=== PATIENT | female | born 1950 | race Caucasian/White ===

== ENCOUNTER 2016-11-02 11:16 | Outpatient (CLI) | payer MEDICARE, OTHER | END 2016-11-02 23:59 | DX: Z12.11 Encounter for screening for malignant neoplasm of colon (principal); R94.6 Abnormal results of thyroid function studies; R73.9 Hyperglycemia, unspecified; I10 Essential (primary) hypertension; E78.5 Hyperlipidemia, unspecified ==

== ENCOUNTER 2017-08-30 14:17 | Day surgery (SDC) | payer MEDICARE, OTHER ==
[2017-08-30] MEDS ORDERED: LACTATED RINGERS 1,000 ML IV ONE (14:22)
[2017-08-30] MEDS ORDERED: PROPOFOL 200 MG/20 ML VIAL IVP ONE (15:50)
[2017-08-30] MEDS ORDERED: KETAMINE 500 MG/10 ML VIAL IVP ONE (15:50)
[2017-08-30] MEDS ORDERED: MIDAZOLAM 2 MG/2 ML VIAL IVP ONE (15:50)
[2017-08-30 16:29] VITALS: BP 104/52
--- NOTE | 2017-08-31 14:32 | PROCEDURE REPORT ---
DATE OF SERVICE: 08/30/2017 Physician: Nuzhat Camarillo MD PROCEDURES: Esophagogastroduodenoscopy and colonoscopy. ENDOSCOPIST: Nuzhat Camarillo MD PRIMARY CARE: Steve Mason MD ONCOLOGIST: Dr. John. INDICATION 1. Positive Cologuard. 2. History of GE reflux with difficulty getting off Prilosec. PREMEDICATIONS: MAC, per Anesthesia. DESCRIPTION OF PROCEDURES After informed consent was obtained, the patient was placed in the left lateral decubitus position. The video upper scope was placed into the oropharynx with the patient's help and swallowed into the esophagus. The esophagus, stomach, and duodenum were carefully examined. On withdrawal, retroflex view of the GE junction was performed. The scope was removed. The patient tolerated the procedure well. The patient was then moved, and the colonoscope was substituted. This was easily passed to the cecum. Preparation was excellent. On slow withdrawal, mucosa was carefully examined. The scope was removed. The patient tolerated the procedure well. BLOOD LOSS: None. COMPLICATIONS: None. FINDINGS ESOPHAGOGASTRODUODENOSCOPY 1. Normal esophagus. 2. Normal stomach. 3. Normal duodenum. COLONOSCOPY 1. A 9 mm sessile polyp in the right colon, hot-snared and removed completely. 2. A very extensive left-sided diverticulosis with large diverticula. 3. Otherwise negative colonoscopy to cecum. Patient will be relieved to find out she only has a medium-sized colon polyp. We will await biopsy pathology return but expect she will need followup colonoscopy in 3-5 years. cc: MD Kit Licea MD TD: 08/30/2017 21:51
== END 2017-08-30 14:18 | disposition home or self-care (01) ==
LOC: SDS 14:17
PROVIDERS: ATTEND Internal Medicine Gastroenterology
PROC: 0DJ08ZZ Inspection of Upper Intestinal Tract, Via Natural or Artificial Opening Endoscopic (ICD-10-PCS; principal; 2017-08-30 15:00)
PROC: 0DBF8ZX Excision of Right Large Intestine, Via Natural or Artificial Opening Endoscopic, Diagnostic (ICD-10-PCS; 2017-08-30 15:00)
DX: D12.2 Benign neoplasm of ascending colon (principal); K57.30 Diverticulosis of large intestine without perforation or abscess without bleeding; K21.9 Gastro-esophageal reflux disease without esophagitis; I10 Essential (primary) hypertension; J45.909 Unspecified asthma, uncomplicated; E78.00 Pure hypercholesterolemia, unspecified; Z85.3 Personal history of malignant neoplasm of breast; Z87.891 Personal history of nicotine dependence
CPT/HCPCS: 43235; 45385; J7120

== ENCOUNTER 2017-10-25 08:00 | Outpatient (CLI) | payer MEDICARE, OTHER | END 2017-10-25 08:01 | disposition home or self-care (01) | LOC: LAB.WCP 08:00 | PROVIDERS: ATTEND Family Medicine | DX: Z79.891 Long term (current) use of opiate analgesic (principal) | CPT/HCPCS: 80307; 81599 ==

== ENCOUNTER 2018-11-15 12:49 | Outpatient (CLI) | payer MEDICARE, OTHER ==
--- NOTE | 2018-11-15 13:54 | Mammography Report ---
Reason: BREAST PAIN,RIGHT Procedure Date: 11/15/2018 Accession Number: [id number] / [id number] Procedure: SONI - Diagnostic Dig Bilat CPT Code: FULL RESULT: EXAM: Diagnostic Dig Bilat DATE: 11/15/2018 1:22 PM CLINICAL HISTORY: Diagnostic mammogram. Personal history of breast cancer status post lumpectomy in 2007. The patient experiences intermittent pain in the region of prior surgery. TECHNIQUE: (B) - Bilateral CC and MLO views were obtained. A right ML view was also obtained. COMPARISON: 10/23/2017 through 12/25/2008. PARENCHYMAL PATTERN: (A) - The breast(s) demonstrate(s) scattered fibroglandular densities. FINDINGS: Postsurgical changes in the right breast are stable with no change in appearance of the breast in the region marked as palpable. A prominent region of fat necrosis is seen in the region marked as palpable, typically benign and possibly responsible for the patient's symptoms. There are no suspicious masses, calcifications, or areas of distortion. IMPRESSION: Benign findings. BI-RADS category 2. RECOMMENDATION: (ANNUAL) - Recommend routine annual screening mammography. BI-RADS CATEGORY: (2) - Benign Findings. STANDARD QUALIFYING STATEMENTS: 1. This examination was not reviewed with the aid of Computer-Aided Detection (CAD). 2. A negative or benign imaging report should not preclude biopsy if clinically suspicious findings are present. 3. Dense breasts may obscure an underlying neoplasm. 4. This examination was reviewed with the aid of 3D breast imaging (tomosynthesis).
== END 2018-11-15 12:50 | disposition home or self-care (01) ==
LOC: DI 12:49
PROVIDERS: ATTEND Family Medicine
DX: N64.4 Mastodynia (principal); Z85.3 Personal history of malignant neoplasm of breast
CPT/HCPCS: 77066

== ENCOUNTER 2019-01-14 08:00 | Outpatient (CLI) | payer MEDICARE, OTHER ==
[2019-01-14 18:42] LABS: BASOPHILS # (AUTO) 0.1 10^3/uL (0.0-0.1); EOSINOPHILS # (AUTO) 0.3 10^3/uL (0.0-0.7); HGB - HEMOGLOBIN 13.2 g/dL (12.0-16.0); LYMPHOCYTES % (AUTO) 18.3 %; MEAN CORPUSCULAR HGB CONC 32.8 g/dL (32.0-36.0); MEAN CORPUSCULAR VOLUME 97.8 fL (81.0-99.0); MEAN PLATELET VOLUME 9.9 fL (7.9-10.8); MONOCYTES # (AUTO) 0.7 10^3/uL (0.0-1.0); MONOCYTES % (AUTO) 13.3 %; NEUTROPHILS # (AUTO) 3.2 10^3/uL (1.5-6.6); PLT - PLATELET COUNT 339 10^3/uL (130-450); RED BLOOD COUNT 4.12 10^6/uL (4.20-5.40); RED CELL DISTRIBUTION WIDTH 12.8 % (12.0-15.0); WHITE BLOOD COUNT 5.2 x10^3/uL (4.8-10.8)
[2019-01-14 19:55] LABS: AST ASPARTATE AMINOTRANSFERASE 35 IU/L (10-42); BILIRUBIN,TOTAL 0.8 mg/dL (0.2-1.0); BUN - BLOOD UREA NITROGEN 13 mg/dL (6-20); CALCIUM 9.1 mg/dL (8.5-10.3); CARBON DIOXIDE - CO2 24 mmol/L (21-32); CHLORIDE 102 mmol/L (101-111); CREATININE 0.8 mg/dL (0.4-1.0); GFR - MDRD 71 (>89); GLUCOSE 108 mg/dL (70-100); SODIUM 137 mmol/L (135-145)
[2019-01-14 19:56] LABS: ALBUMIN 3.9 g/dL (3.2-5.5); ALBUMIN/GLOBULIN RATIO 1.3 (1.0-2.2); ALKALINE PHOSPHATASE 62 IU/L (42-121); ALT ALANINE AMINOTRANSFERASE 39 IU/L (10-60); CHOL/HDL RATIO 4.7 (<4.4); CHOLESTEROL 274 mg/dL; HDL CHOLESTEROL 58 mg/dL; LDL CHOLESTEROL,CALCULATED 163 mg/dL; LDL/HDL RATIO 2.8 (<4.4); TOTAL PROTEIN 6.9 g/dL (6.7-8.2); VLDL CHOLESTEROL 53 mg/dL
[2019-01-14 20:43] LABS: HEMOGLOBIN A1C 0.53 g/dL; HEMOGLOBIN A1C % 5.6 % (4.6-6.2)
== END 2019-01-14 23:59 | disposition home or self-care (01) ==
LOC: LAB.WCP 08:00
PROVIDERS: ATTEND Family Medicine
DX: I10 Essential (primary) hypertension (principal); R73.9 Hyperglycemia, unspecified; R63.5 Abnormal weight gain; J44.9 Chronic obstructive pulmonary disease, unspecified; E78.5 Hyperlipidemia, unspecified
CPT/HCPCS: 36415; 80053; 80061; 83036; 83721; 84443; 85025

== ENCOUNTER 2019-12-02 14:00 | Outpatient (CLI) | payer MEDICARE, OTHER ==
--- NOTE | 2019-12-03 10:10 | Mammography Report ---
BILATERAL DIGITAL SCREENING MAMMOGRAM 3D/2D: 12/02/2019 CLINICAL: Routine screening. Personal history of right breast cancer. Comparison is made to exams dated: 10/20/2015 mammogram, 10/20/2016 mammogram, 10/23/2017 mammogram, an d 09/23/2014 mammogram - [facility]. There are scattered fibroglandular elements in both juliann sts. There are benign vascular calcifications in the right breast. There also are benign post operative f indings in the right breast. No significant masses, calcifications, or other findings are seen in either breast. There has been no significant interval change. IMPRESSION: There is no mammographic evidence of malignancy. A 1 year screening mammogram is recommended. This exam was interpreted at Station ID: [id number]. NOTE: For mammograms, a report in lay terms will be sent to the patient. Approximately 15% of breast malignancies will not be visualized mammographically. In the management of a palpable breast mass, a negative mammogram must not discourage biopsy of a clinically suspicious lesion. Electronically Signed By: Ellen sierra/rosi:12/02/2019 17:08:28 ACR BI-RADS Category 2: Benign Finding(s) 3342F PARENCHYMAL PATTERN: (A) - The breast(s) demonstrate(s) scattered fibroglandular densities. BI-RADS CATEGORY: (2) - 2 RECOMMENDATION: (ANNUAL) - Recommend routine annual screening mammography. [id number] 1 year screening LATERALITY: (B)
== END 2019-12-02 14:01 | disposition home or self-care (01) ==
LOC: DI 14:00
DX: Z12.31 Encounter for screening mammogram for malignant neoplasm of breast (principal); Z85.3 Personal history of malignant neoplasm of breast
CPT/HCPCS: 77063; 77067

== ENCOUNTER 2020-10-26 09:00 | Outpatient (CLI) | payer MEDICARE, OTHER ==
--- NOTE | 2020-10-26 15:36 | XRAY Report ---
PROCEDURE: Thoracic Spine 2 View INDICATIONS: CHRONIC THORACIC BACK PX TECHNIQUE: 3 views of the thoracic spine were acquired. COMPARISON: None. FINDINGS: Bones: No fractures or dislocations. No suspicious bony lesions. 12 pairs of ribs are noted, and a ppear intact where visualized. Multilevel degenerative disc space narrowing is present. Soft tissues: No paravertebral stripe thickening. IMPRESSION: Degenerative disc space narrowing throughout the thoracic spine. Reviewed by: Jannet Rodriguez MD on 10/26/2020 3:35 PM PDT Approved by: Jannet Rodriguez MD on 10/26/2020 3:35 PM PDT Station ID: [id number]
--- NOTE | 2020-10-26 15:37 | XRAY Report ---
PROCEDURE: Cervical Spine 2 View INDICATIONS: DEGENERATIVE DISC DISEASE, CERVICAL SPINE TECHNIQUE: 3 view(s) of the cervical spine were acquired. COMPARISON: None. FINDINGS: Bones: No fractures or dislocations to the C7-T1 level. The lateral masses of C1 appear intact on t he odontoid view. No suspicious bony lesions. There is trace anterolisthesis of C4 on C5. Severe di sc space narrowing is present at C5-6, C6-7, C7-T1, with small nonbridging anterior osteophytes. Mult ilevel uncovertebral hypertrophy is present. Soft tissues: No prevertebral soft tissue swelling. IMPRESSION: Degenerative changes most severe at C5-6 through C7-T1. Reviewed by: Jannet Rodriguez MD on 10/26/2020 3:36 PM PDT Approved by: Jannet Rodriguez MD on 10/26/2020 3:36 PM PDT Station ID: [id number]
== END 2020-10-26 09:01 | disposition home or self-care (01) ==
LOC: DI.N 09:00
PROVIDERS: ATTEND Family Medicine
DX: M50.322 Other cervical disc degeneration at C5-C6 level (principal); M51.34 Other intervertebral disc degeneration, thoracic region; I10 Essential (primary) hypertension; R73.01 Impaired fasting glucose
CPT/HCPCS: 36415; 80053; 80061; 83036; 83721; 84443; 85025

== ENCOUNTER 2020-10-26 09:05 | Outpatient (CLI) | payer MEDICARE, OTHER ==
[2020-10-26 11:48] LABS: BASOPHILS # (AUTO) 0.1 10^3/uL (0.0-0.1); BASOPHILS % (AUTO) 0.9 %; EOSINOPHILS # (AUTO) 0.3 10^3/uL (0.0-0.7); EOSINOPHILS % (AUTO) 4.9 %; HCT - HEMATOCRIT 41.7 % (37.0-47.0); HGB - HEMOGLOBIN 13.7 g/dL (12.0-16.0); LYMPHOCYTES # (AUTO) 1.1 10^3/uL (1.5-3.5); LYMPHOCYTES % (AUTO) 21.3 %; MEAN CORPUSCULAR HEMOGLOBIN 31.5 pg (27.0-31.0); MEAN CORPUSCULAR HGB CONC 32.9 g/dL (32.0-36.0); MEAN CORPUSCULAR VOLUME 95.9 fL (81.0-99.0); MEAN PLATELET VOLUME 10.5 fL (7.9-10.8); MONOCYTES # (AUTO) 0.7 10^3/uL (0.0-1.0); MONOCYTES % (AUTO) 13.6 %; NEUTROPHILS # (AUTO) 3.2 10^3/uL (1.5-6.6); NEUTROPHILS % (AUTO) 59.3 %; PLT - PLATELET COUNT 334 10^3/uL (130-450); RED BLOOD COUNT 4.35 10^6/uL (4.20-5.40); RED CELL DISTRIBUTION WIDTH 12.7 % (12.0-15.0); WHITE BLOOD COUNT 5.4 x10^3/uL (4.8-10.8)
[2020-10-26 12:02] LABS: ALBUMIN/GLOBULIN RATIO 1.4 (1.0-2.2); ALKALINE PHOSPHATASE 70 IU/L (42-121); ALT ALANINE AMINOTRANSFERASE 26 IU/L (10-60); AST ASPARTATE AMINOTRANSFERASE 21 IU/L (10-42); BILIRUBIN,TOTAL 0.6 mg/dL (0.2-1.0); BUN - BLOOD UREA NITROGEN 16 mg/dL (6-20); CALCIUM 9.4 mg/dL (8.5-10.3); CARBON DIOXIDE - CO2 29 mmol/L (21-32); CHLORIDE 104 mmol/L (101-111); CHOL/HDL RATIO 3.2 (<4.4); CHOLESTEROL 177 mg/dL; CREATININE 0.8 mg/dL (0.4-1.0); GFR - MDRD 71 (>89); GLUCOSE 121 mg/dL (70-100); HDL CHOLESTEROL 55 mg/dL; LDL CHOLESTEROL,CALCULATED 89 mg/dL; LDL/HDL RATIO 1.6 (<4.4); POTASSIUM 3.9 mmol/L (3.5-5.0); SODIUM 142 mmol/L (135-145); TOTAL PROTEIN 6.9 g/dL (6.7-8.2); TRIGLYCERIDES 166 mg/dL; VLDL CHOLESTEROL 33 mg/dL
[2020-10-26 12:08] LABS: ESTIMATED AVERAGE GLUCOSE 114 mg/dL (70-100); HEMOGLOBIN A1c% 5.6 % (4.27-6.07)
[2020-10-26 13:04] LABS: THYROID STIMULATING HORMONE 0.66 uIU/mL (0.34-5.60)
== END 2020-10-26 09:06 | disposition home or self-care (01) ==
LOC: LAB.N 09:05
PROVIDERS: ATTEND Family Medicine
DX: I10 Essential (primary) hypertension (principal); R73.01 Impaired fasting glucose
CPT/HCPCS: 36415; 80053; 80061; 83036; 83721; 84443; 85025

== ENCOUNTER 2020-12-07 13:13 | Outpatient (CLI) | payer MEDICARE, OTHER ==
--- NOTE | 2020-12-08 07:57 | Mammography Report ---
BILATERAL DIGITAL SCREENING MAMMOGRAM 3D/2D: 12/07/2020 CLINICAL: Routine screening. Personal history of right breast cancer. Comparison is made to exams dated: 12/02/2019 mammogram - [facility], 10/23/2017 mamm ogram, 10/20/2016 mammogram, and 10/20/2015 mammogram - [facility]. There are scattered fi broglandular elements in both breasts. There are benign post operative findings and fat necrosis in the right breast. No significant masses, calcifications, or other findings are seen in either breast. There has been no significant interval change. IMPRESSION: BENIGN There is no mammographic evidence of malignancy. A 1 year screening mammogram is recommended. This exam was interpreted at Station ID: [id number]. NOTE: For mammograms, a report in lay terms will be sent to the patient. Approximately 15% of breast malignancies will not be visualized mammographically. In the management of a palpable breast mass, a negative mammogram must not discourage biopsy of a clinically suspicious lesion. Electronically Signed By: Melvin Garcia M.D. slc/:12/07/2020 17:00:01 ACR BI-RADS Category 2: Benign Finding(s) 3342F PARENCHYMAL PATTERN: (A) - The breast(s) demonstrate(s) scattered fibroglandular densities. BI-RADS CATEGORY: (2) - 2 RECOMMENDATION: (ANNUAL) - Recommend routine annual screening mammography. [id number] 1 year screening LATERALITY: (B)
== END 2020-12-07 13:14 | disposition home or self-care (01) ==
LOC: DI 13:13
DX: Z12.31 Encounter for screening mammogram for malignant neoplasm of breast (principal); Z85.3 Personal history of malignant neoplasm of breast

== ENCOUNTER 2020-12-07 13:34 | Outpatient (CLI) | payer MEDICARE, OTHER ==
--- NOTE | 2020-12-07 18:07 | CT Report ---
PROCEDURE: Low Dose Lung Cancer Screen INDICATIONS: TOBACCO USE TECHNIQUE: Noncontrast low-dose 5 mm thick sections acquired from the pulmonary apices to the posterior costophr enic angles. 7 mm thick coronal and sagittal MIP reformats were then acquired. For radiation dose r eduction, the following was used: automated exposure control, adjustment of mA and/or kV according t o patient size. COMPARISON: None. FINDINGS: Image quality: Excellent. Lungs and pleura: No nodules or masses. No acute airspace opacity. No pneumothorax or pleural effusi on. Mediastinum: Heart size is normal. No pericardial effusion. No mediastinal adenopathy by size crit eria. Thoracic aorta and central pulmonary arteries are normal in size. Esophagus is normal in claudy marco antonio. No hiatal hernia. Bones and chest wall: No suspicious bony lesions. No vertebral body compression fractures. No axil sindhu or supraclavicular adenopathy by size criteria. The thyroid is normal in size and there are no incidental findings. Abdomen: Visualized upper abdomen solid organs and bowel loops appear normal in the absence of contr ast. IMPRESSION: 1. No evidence of malignancy to the chest. 2. Lung RADS 1. Negative. Continue annual low dose CT lung screening. Reviewed by: Willy Deal on 12/07/2020 6:05 PM PDT Approved by: Willy Deal on 12/07/2020 6:05 PM PDT Station ID: [id number]
== END 2020-12-07 13:35 | disposition home or self-care (01) ==
LOC: DI 13:34
PROVIDERS: ATTEND Family Medicine
DX: Z12.2 Encounter for screening for malignant neoplasm of respiratory organs (principal); Z87.891 Personal history of nicotine dependence

== ENCOUNTER 2022-08-24 10:24 | Outpatient (CLI) | payer MEDICARE ==
[2022-08-24 12:39] LABS: ALBUMIN 3.9 g/dL (3.2-5.5); ALBUMIN/GLOBULIN RATIO 1.2 (1.0-2.2); ALKALINE PHOSPHATASE 74 IU/L (42-121); ALT ALANINE AMINOTRANSFERASE 27 IU/L (10-60); AST ASPARTATE AMINOTRANSFERASE 25 IU/L (10-42); BILIRUBIN,TOTAL 0.7 mg/dL (0.2-1.0); BUN - BLOOD UREA NITROGEN 14 mg/dL (6-20); CALCIUM 9.6 mg/dL (8.5-10.3); CARBON DIOXIDE - CO2 28 mmol/L (21-32); CHLORIDE 101 mmol/L (101-111); CHOLESTEROL 180 mg/dL; GFR - MDRD 54 (>89); GLUCOSE 117 mg/dL (70-100); HDL CHOLESTEROL 63 mg/dL; LDL CHOLESTEROL,CALCULATED 87 mg/dL; POTASSIUM 4.5 mmol/L (3.5-5.0); SODIUM 137 mmol/L (135-145); TOTAL PROTEIN 7.2 g/dL (6.7-8.2); TRIGLYCERIDES 150 mg/dL; VLDL CHOLESTEROL 30 mg/dL
[2022-08-24 12:40] LABS: CHOL/HDL RATIO 2.9 (<4.4); LDL/HDL RATIO 1.4 (<4.4)
[2022-08-24 12:48] LABS: ESTIMATED AVERAGE GLUCOSE 120 mg/dL (70-100); HEMOGLOBIN A1c% 5.8 % (4.27-6.07)
== END 2022-08-24 10:25 | disposition home or self-care (01) ==
LOC: LAB.N 10:24
PROVIDERS: ATTEND Physician Assistant
DX: E78.5 Hyperlipidemia, unspecified (principal); Z51.81 Encounter for therapeutic drug level monitoring; R73.01 Impaired fasting glucose; R73.03 Prediabetes
CPT/HCPCS: 36415; 80053; 80061; 83036; 83721

== ENCOUNTER 2022-09-08 12:35 | Outpatient (CLI) | payer MEDICARE ==
--- NOTE | 2022-09-08 16:29 | CT Report ---
PROCEDURE: Low Dose Lung Cancer Screen INDICATIONS: HIST OF TOBACCO USE TECHNIQUE: Noncontrast low-dose axial images were acquired from the pulmonary apices to the posterior costophren ic angles. Multiplanar MIP reformats were then reconstructed. For radiation dose reduction, the follo wing was used: automated exposure control, adjustment of mA and/or kV according to patient size. COMPARISON: 12/07/2020 FINDINGS: Image quality: Excellent. Lungs and pleura: No suspicious lung nodules, masses, consolidations, or groundglass opacities. No p leural effusions, pneumothorax, or pleural calcifications. Mediastinum: Heart size is normal. Mild to moderate coronary artery calcification. No pericardial e ffusion. No mediastinal adenopathy by size criteria. Thoracic aorta and central pulmonary arteries are normal in size. Esophagus is normal in caliber. No hiatal hernia. Bones and chest wall: No suspicious bony lesions. No vertebral body compression fractures. Partial ly imaged surgical changes in the right breast and partially seen evidence of fat necrosis in the rig ht breast. No axillary or supraclavicular adenopathy by size criteria. The thyroid gland is not well seen given low-dose technique. Abdomen: There is a partially imaged exophytic cystic mass arising from the posterior right kidney m easuring 3.6 cm with intermediate Hounsfield units. Visualized upper abdomen solid organs and bowel l oops appear otherwise normal in the absence of contrast. IMPRESSION: 1. No suspicious lung nodules or masses. 2. Lung RADS 1, negative. Continue annual low-dose chest CT screening. 3. Surgical changes in the right breast. 4. Partially imaged exophytic right renal cystic mass. Consider renal ultrasound for further initial evaluation. Reviewed by: Janet Hooker MD on 09/08/2022 4:28 PM PDT Approved by: Janet Hooker MD on 09/08/2022 4:28 PM PDT Station ID: [id number]
== END 2022-09-08 12:36 | disposition home or self-care (01) ==
LOC: DI 12:35
PROVIDERS: ATTEND Physician Assistant
DX: Z12.2 Encounter for screening for malignant neoplasm of respiratory organs (principal); N28.1 Cyst of kidney, acquired; Z87.891 Personal history of nicotine dependence

== ENCOUNTER 2022-09-26 21:41 | Outpatient (CLI) | payer MEDICARE ==
--- NOTE | 2022-09-27 13:37 | Ultrasound Report ---
PROCEDURE: Retroperitoneal INDICATIONS: KIDNEY MASS TECHNIQUE: Real-time scanning was performed of the retroperitoneal organs, with image documentation. COMPARISON: CT lung screen dated 09/18/2022 FINDINGS: Kidneys: Kidneys are normal in size. Right kidney measures 10.1 cm long; left kidney measures 10.3 cm long. Right renal cortical thickness is 1.4 cm; left renal cortical thickness is 1.6 cm. No al d masses, hydronephrosis, or nephrolithiasis. The lesion seen off the middle pole of the right kidne y is a simple cyst, measuring 3.8 x 3.1 x 3.9 cm. No further follow-up required. Bladder: Pre-void bladder volume is 232.5 mL. Post-void residual is 5.3 mL. Pre-void images demons trate no intraluminal masses or stones. On pre-void images, bilateral ureteral jets are noted with c olor Doppler interrogation. (Of note, ureteral jets may not be detectable in up to 25% of cases due to insufficient differences in specific gravity between ureteral and bladder urine). Miscellaneous: No free abdominal fluid. IMPRESSION: 1. The lesion referred to as a "cystic mass" off the right kidney on the previous CT is a 3.9 cm maxi mum diameter simple cyst. No further follow-up required. Reviewed by: Hesham Mcgill MD on 09/27/2022 1:35 PM PDT Approved by: Hesham Mcgill MD on 09/27/2022 1:35 PM PDT Station ID: [id number]
== END 2022-09-26 21:42 | disposition home or self-care (01) ==
LOC: DI 21:41
PROVIDERS: ATTEND Physician Assistant
DX: N28.1 Cyst of kidney, acquired (principal)

== ENCOUNTER 2023-01-30 16:27 | Outpatient (CLI) | payer MEDICARE ==
--- NOTE | 2023-01-31 15:19 | XRAY Report ---
PROCEDURE: Foot 3 View LT INDICATIONS: FOOT JOINT PAIN TECHNIQUE: 3 views of the foot were acquired. COMPARISON: None. FINDINGS: Bones: No fractures or dislocations. No suspicious bony lesions. Soft tissues: No suspicious soft tissue calcifications or masses. IMPRESSION: No acute bony abnormality. Reviewed by: Hesham Mcgill MD on 01/31/2023 3:18 PM PDT Approved by: Hesham Mcgill MD on 01/31/2023 3:18 PM PDT Station ID: [id number]
== END 2023-01-30 16:28 | disposition home or self-care (01) ==
LOC: DI 16:27
PROVIDERS: ATTEND Nurse Practitioner
DX: M79.672 Pain in left foot (principal)

== ENCOUNTER 2023-03-27 14:17 | Outpatient (CLI) | payer MEDICARE ==
--- NOTE | 2023-03-28 13:07 | Mammography Report ---
BILATERAL DIGITAL SCREENING MAMMOGRAM 3D/2D: 03/27/2023 CLINICAL: Routine screening. Personal history of right breast cancer. Comparison is made to exams dated: 03/10/2022 mammogram, 12/07/2020 mammogram, 12/02/2019 mammogram - [facility], 10/23/2017 mammogram, 10/20/2016 mammogram, and 10/20/2015 mammogram - [facility]. There are scattered areas of fibroglandular density in both breasts (category b / 25%-50% glandular t issue). There are benign calcifications in the right breast. There also are benign post operative findings i n the right breast. No significant masses, calcifications, or other findings are seen in either breast. There has been no significant interval change. IMPRESSION: BENIGN There is no mammographic evidence of malignancy. A 1 year screening mammogram is recommended. This exam was interpreted at Station ID: [id number]. NOTE: For mammograms, a report in lay terms will be sent to the patient. Approximately 15% of breast malignancies will not be visualized mammographically. In the management of a palpable breast mass, a negative mammogram must not discourage biopsy of a clinically suspicious lesion. Electronically Signed By: Mark al/rosi:03/27/2023 16:07:55 letter sent: No_Letter ACR BI-RADS Category 2: Benign Finding(s) 3342F PARENCHYMAL PATTERN: (A) - The breast(s) demonstrate(s) scattered fibroglandular densities. BI-RADS CATEGORY: (2) - 2 Mammogram [id number] 1 year screening LATERALITY: (B)
== END 2023-03-27 14:18 | disposition home or self-care (01) ==
LOC: DI 14:17
DX: Z12.31 Encounter for screening mammogram for malignant neoplasm of breast (principal); Z85.3 Personal history of malignant neoplasm of breast